=== PATIENT | male | born 1990 | race Caucasian/White ===

== ENCOUNTER 2018-11-04 16:50 | Emergency (ER) | payer OTHER ==
[2018-11-04] MEDS ORDERED: DIPH/PERTUSS(ACELL)/TETANUS VAC/PF 0.5 ML SYR (>=10YO) IM ONE (19:46)
--- NOTE | 2018-11-04 19:51 | ER Document Report ---
HPI - HPI Pain Level: 4 Notes: Patient is a 27-year-old male with no significant past medical history presents emergency department complaining of a nail that is an enlodged in his left plantar foot. Patient states that he was barefoot at the time of the incident when he stepped on the screw. Patient states that they did try to get the screw out on the ground, but were unsuccessful. Patient states that he has been hopping around because he cannot put weight on the foreign body sticking into his foot. He has not noticed any bleeding. Denies drug allergies. Unknown last tetanus. Denies any headache, fever, neck pain, URI, sore throat, chest pain, palpitations, syncope, cough, shortness of breath, wheeze, dyspnea, abdominal pain, nausea/vomiting/diarrhea, urinary retention, dysuria, hematuria, loss of control of bowel or bladder, numbness/tingling, muscle paralysis/weakness, or rash. - ROS Systems Reviewed and Negative: Yes All other systems reviewed and negative Past Medical History - Social History Smoking Status: Never Smoker Family History: Reviewed & Not Pertinent Vertical Provider Document - CONSTITUTIONAL Agree With Documented VS: Yes Notes: PHYSICAL EXAMINATION: GENERAL: Well-appearing, well-nourished and in no acute distress. LUNGS: Breath sounds clear to auscultation bilaterally and equal. No wheezes rales or rhonchi. HEART: Regular rate and rhythm without murmurs, rubs, gallops. Musculoskeletal: Lt foot/ankle: There is a screw embedded into the left lateral mid plantar foot. FROM to passive/active. Strength 5+/5. N/V intact distal. + tenderness associated where the screw is. No bony tenderness of the ankle. Achilles intact. Extremities: No cyanosis, clubbing, or edema b/l. Peripheral pulses 2+. Capillary refill less than 3 seconds. NEUROLOGICAL: Normal speech, hopping/limping gait. Normal sensory, motor exams PSYCH: Normal mood, normal affect. SKIN: see above - INFECTION CONTROL TRAVEL OUTSIDE OF THE [place] IN LAST 30 DAYS: No Course - Re-evaluation Re-evalutation: 11/04/18 20:13 Patient is an afebrile, well-hydrated, 27-year-old male who presents emergency department with a foreign body to the plantar left foot. Vitals are acceptable without significant tachycardia, tachypnea, or hypoxia. PE is otherwise unremarkable for any neurovascular compromise, obvious tendon/ligament rupture, obvious fracture/dislocation, septic joint. X-ray was obtained and reviewed by myself showing a threaded screw in the plantar foot that was rather short. Patient opted to have the screw twisted out without any lidocaine. The screw was removed successfully without any complications and patient tolerated the procedure well. Wound was thoroughly irrigated and cleansed before and after. Wound dressing was placed. Wound instructions reviewed and crutches provided. Tetanus was updated today. I will be sending him home with a prescription for an antibiotic. Recheck with your PCM in 2-3 days. Consider consult with orthopedics if needed. Return to the ED with any other worsening/concerning symptoms as reviewed. Patient is in agreement. - Vital Signs Vital signs: Temp Pulse Resp BP Pulse Ox 98.1 F 97 16 144/80 H 99 11/04/18 17:16 11/04/18 17:16 11/04/18 17:16 11/04/18 17:16 11/04/18 17:16 Procedures - Additional Procedures Foreign body removal Time performed: 20:10 Additional Procedures: Other - Foreign body removed manually without any complications from the left plantar foot. Wound thoroughly irrigated and cleansed with ChloraPrep. No complications. Discharge - Discharge Clinical Impression: Foreign body in left foot Qualifiers: Encounter type: initial encounter Qualified Code(s): S90.852A - Superficial foreign body, left foot, initial encounter Condition: Stable Disposition: HOME, SELF-CARE Additional Instructions: Keep the skin clean Wash with soap and water Epsom salt soaks Do not submerge under any other water aside from the soaks Tylenol/ibuprofen if needed Triple antibiotic ointment daily Take medication as directed Monitor for any worsening symptoms Recheck with your PCM in 2-3 days Return to the ED with any worsening symptoms and/or development of fever, headache, chest pain, palpitations, syncope, shortness of breath, trouble breathing, abdominal pain, n/v/d, abscess, purulent discharge, red streaks, worsening swelling, or other worsening symptoms that are concerning to you. Prescriptions: Amox Tr/Potassium Clavulanate [Augmentin 875-125 Tablet] 1 tab PO BID 10 Days #20 tablet Forms: Elevated Blood Pressure Referrals: RYAN MADSEN DPM [ACTIVE STAFF] - Follow up as needed
[2018-11-04 20:52] VITALS: BP 119/84
--- NOTE | 2018-11-04 21:17 | RADIOLOGY REPORT (SQ) ---
EXAM DESCRIPTION: XR LEFT FOOT 3 OR MORE VIEWS COMPLETED DATE/TME: 11/04/2018 19:46 CLINICAL HISTORY: 27 years, Male, screw in plantar foot COMPARISON: None. NUMBER OF VIEWS: TECHNIQUE: LIMITATIONS: None. FINDINGS: There is a metallic screw embedded in the plantar surface of the foot. The distal tip of the screw is a maximum of 12 mm below the skin surface. No fracture. Mineralization of bone appears normal. IMPRESSION: Screw embedded in the plantar surface of the foot. copyright 2010 [employer]- All Rights Reserved
== END 2018-11-04 21:14 | disposition home or self-care (01) ==
LOC: ER 16:50
DX: S90.852A Superficial foreign body, left foot, initial encounter (principal); W45.0XXA Nail entering through skin, initial encounter
CPT/HCPCS: 90471; 90715; 99283